=== PATIENT | female | born 1980 | race Caucasian/White ===

== ENCOUNTER 2025-05-04 04:55 | Emergency (ER) | payer MEDICAID, SELFPAY ==
[~2025-05-04] VITALS: Ht 165.1 cm; Wt 87.7 kg
[2025-05-04 04:57] VITALS: BP 125/87; TEMP 97.5; O2SAT 97
== END 2025-05-04 05:35 | disposition left against medical advice (07) ==
LOC: M ED 04:55
DX: Z53.21 Procedure and treatment not carried out due to patient leaving prior to being seen by health care provider (principal)